=== PATIENT | male | born 1990 | race Caucasian/White ===

== ENCOUNTER 2018-07-07 21:28 | Emergency (ER) | payer OTHER ==
[2018-07-07 22:32] LABS: HEMATOCRIT 45.3 % (42.0-52.0); HEMOGLOBIN 15.9 g/dl (13.5-17.5); MEAN CORPUSCULAR HEMOGLOBIN 32.6 pg (27.0-33.0); MEAN CORPUSCULAR HGB CONC 35.1 g/dl (32.0-36.5); MEAN CORPUSCULAR VOLUME 92.8 fl (80.0-96.0); PLATELET COUNT, AUTOMATED 175 10^3/uL (150-450); RED BLOOD COUNT 4.88 10^6/uL (4.30-6.10); RED CELL DISTRIBUTION WIDTH 11.4 % (11.5-14.5); WHITE BLOOD COUNT 8.5 10^3/uL (4.0-10.0)
[2018-07-07 22:52] LABS: ERYTHROCYTE SEDIMENTATION RATE 8 mm/hr (0-15)
[2018-07-07 23:11] LABS: ALBUMIN 3.9 GM/DL (3.2-5.2); ALBUMIN/GLOBULIN RATIO 1.22 (1.00-1.93); ALKALINE PHOSPHATASE 80 U/L (45-117); ALT/SGPT 30 U/L (12-78); ANION GAP 5 MEQ/L (8-16); AST/SGOT 27 U/L (7-37); BILIRUBIN,TOTAL 0.3 MG/DL (0.2-1.0); BLOOD UREA NITROGEN 13 MG/DL (7-18); C REACTIVE PROTEIN QUANTITATIV 2.59 MG/DL (0.00-0.30); CALCIUM LEVEL 8.6 MG/DL (8.5-10.1); CARBON DIOXIDE LEVEL 29 MEQ/L (21-32); CHLORIDE LEVEL 107 MEQ/L (98-107); CPK CREATINE PHOSPHOKINASE 157 U/L (39-308); CREATININE FOR GFR 1.14 MG/DL (0.70-1.30); GLOMERULAR FILTRATION RATE > 60.0 (>60); GLUCOSE, FASTING 95 MG/DL (70-100); MB/CK RELATIVE INDEX 0.64 (< OR =4); POTASSIUM SERUM 4.7 MEQ/L (3.5-5.1); SODIUM LEVEL 141 MEQ/L (136-145); TOTAL PROTEIN 7.1 GM/DL (6.4-8.2); TROPONIN I < 0.02 NG/ML (< 0.10)
== END 2018-07-07 23:36 | disposition home or self-care (01) ==
LOC: M ED 21:28
DX: L73.9 Follicular disorder, unspecified (principal); R07.89 Other chest pain; F17.210 Nicotine dependence, cigarettes, uncomplicated
CPT/HCPCS: 93005

== ENCOUNTER 2019-08-02 16:05 | Emergency (ER) | payer OTHER ==
[~2019-08-02] VITALS: Ht 180.3 cm; Wt 90.9 kg
[2019-08-02 16:05] VITALS: BP 122/59
[2019-08-02] MEDS ORDERED: PROPARACAINE 0.5% OPHTH SOL 15ML OD ONE (16:45)
[2019-08-02] MEDS ORDERED: FLUORESCEIN OPHTH 1 MG STRIP OD ONE (16:45)
[2019-08-02] MEDS ORDERED: ERYTHROMYCIN OPHTH OINT OD ONE (17:00)
== END 2019-08-02 17:06 | disposition home or self-care (01) ==
LOC: M ED 16:05
DX: S05.01XA Injury of conjunctiva and corneal abrasion without foreign body, right eye, initial encounter (principal); W22.8XXA Striking against or struck by other objects, initial encounter; Y99.1 Military activity; F17.210 Nicotine dependence, cigarettes, uncomplicated